=== PATIENT | female | born 1995 | race American Indian/Alaskan Native ===

== ENCOUNTER 2017-01-29 02:53 | Observation (INO) | payer MEDICAID ==
[2017-01-29 03:05] VITALS: BMI 26.6
[2017-01-29 03:10] VITALS: TEMP 98.1; O2SAT 97
--- NOTE | 2017-01-29 03:23 | ED PDOC ---
Arrival/HPI - General Chief Complaint: Medical Clearance Time Seen by Provider: 01/29/17 03:08 Historian: Patient - History of Present Illness Narrative History of Present Illness (Text): 01/29/17 03:25 Paul Barba is a 21 year old female who presents to the emergency department for evaluation of superficial abrasions to bilateral knees and forehead which she sustained 4 days ago following a fall. Patient states that she was evaluated at [facility] yesterday for these symptoms. Patient was unsure if X-rays were done at that time. Denies fever, chills, headache, chest pain, nausea, vomiting, diarrhea, or any other complaints at this time. Time/Duration: < week (4 days ) Symptom Onset: Sudden Symptom Course: Unchanged Severity Level: Mild Activities at Onset: Significant Past Medical History - Provider Review Nursing Documentation Reviewed: Yes - Psychiatric Hx Substance Use: No - Anesthesia Hx Anesthesia: No Family/Social History - Physician Review Nursing Documentation Reviewed: Yes Family/Social History: No Known Family HX Smoking Status: Never Smoked Hx Alcohol Use: No Hx Substance Use: No Allergies/Home Meds Allergies/Adverse Reactions: Allergies No Known Allergies Allergy (Verified 01/29/17 03:05) Home Medications: Home Meds Medication Instructions Recorded Confirmed No Known Home Med 01/29/17 01/29/17 Review of Systems - Physician Review All systems were reviewed & negative as marked: Yes - Review of Systems Constitutional: Normal. absent: Fatigue, Fevers Respiratory: Normal. absent: SOB, Cough Cardiovascular: absent: Chest Pain Gastrointestinal: Normal. absent: Abdominal Pain, Diarrhea, Nausea, Vomiting Musculoskeletal: Other (abrasion to bilateral knee and forehead) Psychiatric: Normal Physical Exam Vital Signs Reviewed: Yes Vital Signs Temp Pulse Resp BP Pulse Ox 01/29/17 03:05 98.1 F 63 17 101/62 97 Temperature: Afebrile Blood Pressure: Normal Pulse: Regular Respiratory Rate: Normal Appearance: Positive for: Well-Appearing, Non-Toxic, Comfortable Pain Distress: None Mental Status: Positive for: Alert and Oriented X 3 - Systems Exam Head: Present: Normocephalic, Other (superficial abrasion to forehead) Pupils: Present: PERRL Extroacular Muscles: Present: EOMI Conjunctiva: Present: Normal Respiratory/Chest: Present: Clear to Auscultation, Good Air Exchange. No: Respiratory Distress, Accessory Muscle Use Cardiovascular: Present: Regular Rate and Rhythm, Normal S1, S2. No: Murmurs Abdomen: Present: Normal Bowel Sounds. No: Tenderness, Distention, Peritoneal Signs Upper Extremity: Present: Normal Inspection. No: Cyanosis, Edema Lower Extremity: Present: NORMAL PULSES, Normal ROM, Neurovascularly Intact, Other (superficial abrasion to bilateral knees ). No: Edema, CALF TENDERNESS, Tenderness, Swelling, Erythema, Deformity Neurological: Present: GCS=15, CN II-XII Intact, Speech Normal Skin: Present: Warm, Dry, Normal Color. No: Rashes Psychiatric: Present: Alert, Oriented x 3, Normal Insight, Normal Concentration Medical Decision Making ED Course and Treatment: 01/29/17 03:33 Impression: A 21 year old female who presents to the emergency room for evaluation of superficial abrasion to bilateral knees and forehead. Plan: -- CT Head -- Knee X-Ray -- POC urine test -- Reassess and disposition 630 am pt refusing to give urine and have ct and xrays taken Progress Notes: 01/29/17 06:55 - RAD Interpretation Project Economist: Radiologist ED OBSERVATION Discharge: Yes Date of observation admission: 01/29/17 Time of observation admission: 03:00 - Scribe Statement The provider has reviewed the documentation as recorded by the Sarah Weiss Provider Attestation: All medical record entries made by the Sarah were at my direction and personally dictated by me. I have reviewed the chart and agree that the record accurately reflects my personal performance of the history, physical exam, medical decision making, and the department course for this patient. I have also personally directed, reviewed, and agree with the discharge instructions and disposition. Disposition/Present on Arrival - Present on Arrival Any Indicators Present on Arrival: No History of DVT/PE: No History of Uncontrolled Diabetes: No Urinary Catheter: No History of Decub. Ulcer: No History Surgical Site Infection Following: None - Disposition Have Diagnosis and Disposition been Completed?: Yes Diagnosis: Abrasion of both knees Disposition: HOME/ ROUTINE Disposition Time: 06:56 Condition: GOOD
[2017-01-29 07:09] VITALS: BP 115/77; PULSE 84; RESP 18
== END 2017-01-29 06:56 | disposition home or self-care (01) ==
LOC: ED 02:53 → EROBSV 03:03
PROVIDERS: ADMIT Emergency Medicine; ATTEND Emergency Medicine
DX: S80.212D Abrasion, left knee, subsequent encounter (principal); S80.211D Abrasion, right knee, subsequent encounter; W19.XXXD Unspecified fall, subsequent encounter
CPT/HCPCS: 99282; G0378